=== PATIENT | female | born 2000 | race Caucasian/White ===

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

== ENCOUNTER 2018-08-12 17:28 | Emergency (ER) | payer OTHER ==
--- NOTE | 2018-08-12 17:41 | PDOC ---
Attending Attestation - HPI HPI: 08/12/18 23:48 This patient was evaluated and worked up in conjunction with Dr. Escalante as the attending. However the resident did discuss the disposition of the patient with me prior to sending the patient home is Dr. Escalante gone off duty. <Lulu Kelly I - Last Filed: 08/12/18 23:48> - Resident Resident Name: Fortino Salazar - ED Attending Attestation I have performed the following: I have examined & evaluated the patient, The case was reviewed & discussed with the resident, I agree w/resident's findings & plan, Exceptions are as noted - HPI HPI: Patient exam showed epigastric and right upper quadrant tenderness, but this finding was not reproducible on subsequent examinations. There was no lower quadrant tenderness. There was no guarding or rebound. The abdomen was not distended and bowel sounds were normal. - Physicial Exam PE: 08/15/18 08:23 Physical was noted above - Medical Decision Making 08/15/18 08:19 Assessment: Laboratory findings showed no significant abnormalities. Ultrasound performed, specifically to evaluate the kidneys and gallbladder/liver, did not show any unusual findings. The patient's history reveals chronic intermittent abdominal pain of this nature, most suggestive of chronic intermittent dyspepsia , stress-related hyperacidity, or IBS. Plan: Symptomatic treatment, return to ER if worse, or if other significant symptoms develop, and follow up with electronics technician for further evaluation and treatment. Patient was signed out to Dr. Amaro at 7 PM pending further evaluation and disposition by Dr. Amaro and the resident in charge of the case. <Brandon Gibbons - Last Filed: 08/15/18 08:23>
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
[2018-08-12 17:56] LABS: URINE APPEARANCE Clear; URINE BILIRUBIN 1+ (NEGATIVE); URINE COLOR Amber; URINE GLUCOSE (UA) Negative (NEGATIVE); URINE KETONE 2+ (NEGATIVE); URINE LEUK ESTERASE Negative (NEGATIVE); URINE NITRITE Negative (NEGATIVE); URINE PROTEIN Negative (NEGATIVE); URINE UROBILINOGEN 0.2 (0.2-1.0)
[2018-08-12 18:02] LABS: HCG,QUALITATIVE URINE Negative
[2018-08-12] MEDS ORDERED: KETOROLAC TROMETHAMINE 30 MG/1 ML VIAL IVPUSH ONE (18:08)
[2018-08-12] MEDS ORDERED: SODIUM CHLORIDE 0.9% 500 ML INFUS.BAG IV ONE (18:08)
[2018-08-12 18:11] LABS: EPI CELLS 3+ /HPF; URINE WBC 0-2 (0-5)
[2018-08-12] MEDS ORDERED: KETOROLAC TROMETHAMINE 30 MG/1 ML VIAL ONE (18:11)
[2018-08-12 18:37] LABS: BASO % 0.7 % (0-2.0); MEAN PLT VOLUME 9.8 fl (7.5-11.1); WHITE BLOOD COUNT 8.6 K/mm3 (4.0-10.8)
[2018-08-12 18:40] LABS: EOS % 0.4 % (0-4.5); HEMATOCRIT 43.3 % (32.4-45.2); HEMOGLOBIN 14.3 GM/dl (10.7-15.3); LYMPH % 25.8 % (8-40); MCH 29.9 pg (25.7-33.7); MEAN CELL VOLUME 90.5 fl (80-96); MONO % 5.4 % (3.8-10.2); NEUT % 67.7 % (42.8-82.8); PLATELET COUNT 283 K/MM3 (134-434); RBC 4.78 M/mm3 (3.60-5.2); RDW 12.7 % (11.6-15.6)
[2018-08-12 18:42] VITALS: PULSE 78; TEMP 98.7; BMI 23.0
[2018-08-12 18:45] LABS: ALBUMIN 4.7 g/dl (3.5-5.0); ALK PHOS 67 U/L (32-92); ANION GAP 7 MMOL/L (8-16); BILIRUBIN,TOTAL 0.8 mg/dl (0.2-1.0); BLOOD UREA NITROGEN 20 mg/dl (7-18); CALCIUM 9.1 mg/dl (8.4-10.2); CHLORIDE 101 mmol/L (98-107); CO2 26 mmol/L (22-28); CREATININE 0.8 mg/dl (0.6-1.3); GLUCOSE,RANDOM 100 mg/dl (74-106); POTASSIUM 3.9 mmol/L (3.5-5.1); SGOT/AST 23 U/L (10-42); SGPT/ALT 16 U/L (10-40); SODIUM 134 mmol/L (136-145); TOT PROT 7.7 g/dl (6.4-8.3)
[2018-08-12 20:18] VITALS: BP 117/69
== END 2018-08-12 20:17 | disposition home or self-care (01) ==
LOC: FER 17:28
PROC: 3E0333Z Introduction of Anti-inflammatory into Peripheral Vein, Percutaneous Approach (ICD-10-PCS; principal; 2018-08-12)
PROC: 3E0337Z Introduction of Electrolytic and Water Balance Substance into Peripheral Vein, Percutaneous Approach (ICD-10-PCS; 2018-08-12)
DX: B36.0 Pityriasis versicolor (principal); S36.113A Laceration of liver, unspecified degree, initial encounter
CPT/HCPCS: 36415; 76705-TC; 80053; 81003; 81015; 84703; 85025; 87086; 99282-25

== ENCOUNTER 2018-10-08 11:59 | Emergency (ER) | payer OTHER ==
[2018-10-08 12:06] VITALS: BP 112/67; PULSE 69; TEMP 97.8; BMI 20.5
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
[2018-10-08] MEDS ORDERED: IBUPROFEN 600 MG TABLET (FP) PO ONE ×2 (12:27→12:37)
--- NOTE | 2018-10-09 11:38 | EKG ---
Test Reason : Blood Pressure : / mmHG Vent. Rate : 050 BPM Atrial Rate : 050 BPM P-R Int : 134 ms QRS Dur : 090 ms QT Int : 438 ms P-R-T Axes : 036 084 004 degrees QTc Int : 399 ms SINUS BRADYCARDIA CANNOT RULE OUT ANTERIOR INFARCT , AGE UNDETERMINED ABNORMAL ECG WHEN COMPARED WITH ECG OF 27-NOV-2017 16:48, NO SIGNIFICANT CHANGE WAS FOUND Confirmed by ELSIE PEREZ, CHARLEY ([id number]) on 10/09/2018 11:37:44 AM Referred By: HECOTR BRAVO Confirmed By:CHARLEY ZIMMERMAN MD
== END 2018-10-08 13:30 | disposition home or self-care (01) ==
LOC: FER 11:59
DX: F41.0 Panic disorder [episodic paroxysmal anxiety] (principal)
CPT/HCPCS: 84703; 93005; 99282-25

== ENCOUNTER 2018-11-08 04:50 | Emergency (ER) | payer OTHER ==
[2018-11-08 04:53] VITALS: BP 113/57; PULSE 71; TEMP 98; BMI 23.0
[2018-11-08] MEDS ORDERED: ONDANSETRON 4 MG/2 ML VIAL IVPUSH ONE (04:56)
[2018-11-08] MEDS ORDERED: SODIUM CHLORIDE 1,000 ML IV STA ×2 (04:56→06:40)
--- NOTE | 2018-11-08 05:01 | PDOC ---
History of Present Illness - General Chief Complaint: Nausea/Vomiting Stated Complaint: NAUSEA/VOMITING Time Seen by Provider: 11/08/18 04:51 - History of Present Illness Initial Comments: 11/08/18 04:59 This otherwise healthy 17-year-old woman presents with a one-day history of nausea/vomiting/abdominal pain. Patient states that she had onset of pain in the upper portion of her abdomen with nausea during the day yesterday. At approximately 1 AM, she had onset of vomiting . This continued for several hours with emesis being bilious (no blood or coffee ground material). The pt was unable to eat or drink anything for most of the day. No history of measured fever; patient had chills briefly when she was vomiting earlier. No history of diarrhea. No recent travel. No unusual food ingestions except ate blackberies a few days ago , some of which were moldy. LMP approximately one month ago. She is currently due for her menstrual period. no change in flow or duration Past History - Past Medical History Allergies/Adverse Reactions: Allergies Allergy/AdvReac Type Severity Reaction Status Date / Time No Known Allergies Allergy Verified 10/08/18 12:00 Home Medications: Ambulatory Orders Ondansetron [Zofran Odt -] 4 mg SL TID PRN #12 od.tablet 11/08/18 COPD: No Psychiatric Problems: Yes (ANXIETY) Thyroid Disease: No - Immunization History Immunization Up to Date: Yes - Suicide/Smoking/Psychosocial Hx Smoking Status: No Smoking History: Never smoked Have you smoked in the past 12 months: No Number of Cigarettes Smoked Daily: 0 Hx Alcohol Use: No Drug/Substance Use Hx: Yes (MARIJAUNA) Substance Use Type: None Review of Systems - Review of Systems Able to Perform ROS?: Yes Comments:: 12 point review of systems is negative except for what is noted in the history of present illness *Physical Exam - Vital Signs Last Vital Signs Temp Pulse Resp BP Pulse Ox 98 F 71 16 113/57 L 99 11/08/18 04:51 11/08/18 04:51 11/08/18 04:51 11/08/18 04:51 11/08/18 04:51 - Physical Exam Comments: GENERAL: Young adult female, appearing in mild distress HEAD: Normal with no signs of trauma. EYES: PERRLA, EOMI, sclera anicteric, conjunctiva clear. ENT: Ears normal, nares patent, oropharynx clear without exudates. Dry mucous membranes. NECK: Normal range of motion, supple without lymphadenopathy, JVD, or masses. LUNGS: Breath sounds equal, clear to auscultation bilaterally. No wheezes, and no crackles. HEART:Regular rate and rhythm, normal S1 and S2 without murmur, rub or gallop. ABDOMEN:.normal bowel sounds bilateral upper abdominal tenderness; no masses or organomegaly EXTREMITIES: Normal range of motion, no edema. No clubbing or cyanosis. No erythema, or tenderness. NEUROLOGICAL: Cranial nerves II through XII grossly intact. Normal speech. No focal neurological deficits. MUSCULOSKELETAL: Back non-tender to palpation, no CVA tenderness SKIN: Warm, Dry, normal turgor, no rashes or lesions noted. Moderate Sedation - Procedure Monitoring Vital Signs: Procedure Monitoring Vital Signs Temperature 98 F 11/08/18 04:51 Pulse Rate 71 11/08/18 04:51 Respiratory Rate 16 11/08/18 04:51 Blood Pressure 113/57 L 11/08/18 04:51 O2 Sat by Pulse Oximetry (%) 99 11/08/18 04:51 ED Treatment Course - LABORATORY CBC & Chemistry Diagram: 11/08/18 05:10 11/08/18 05:10 Medical Decision Making - Medical Decision Making 11/08/18 06:43 Patient feels significantly better with resolution of most of her nausea and a lot of her pain after liter of normal saline and 4 mg of Zofran IV. Repeat abdominal exam reveals no evidence of tenderness or masses. Mucous membranes are still dry and patient has not yet urinated after giving a small sample for urinalysis. Patient will have a second liter normal saline IV *DC/Admit/Observation/Transfer Diagnosis at time of Disposition: Gastroenteritis - Discharge Dispostion Condition at time of disposition: Stable - Referrals Referrals: Jn Walters MD [Primary Care Provider] - - Patient Instructions Printed Discharge Instructions: DI for Viral Gastroenteritis -- Adult Additional Instructions: Rest; clear liquids Advance diet cautiously Zofran ODT 4 mg up to 3 times a day as needed for nausea No work until November Return to ER if you have recurrent, persistent vomiting or develop fever/severe pain Follow-up with your general doctor within the next 5 days - Post Discharge Activity Forms/Work/School Notes: Back to Work
[2018-11-08 05:48] LABS: BASO % 0.1 % (0-2.0); EOS % 1.1 % (0-4.5); HEMATOCRIT 45.9 % (32.4-45.2); HEMOGLOBIN 14.7 GM/dL (10.7-15.3); LYMPH % 6.1 % (8-40); MCH 28.8 pg (25.7-33.7); MEAN CELL VOLUME 89.8 fl (80-96); MEAN PLT VOLUME 9.2 fl (7.5-11.1); MONO % 6.1 % (3.8-10.2); NEUT % 86.6 % (42.8-82.8); PLATELET COUNT 288 K/MM3 (134-434); RDW 13.8 % (11.6-15.6); WHITE BLOOD COUNT 16.7 K/mm3 (4.0-10.0)
[2018-11-08 05:58] LABS: HCG,QUALITATIVE URINE Negative
[2018-11-08 06:24] LABS: URINE APPEARANCE CLOUDY; URINE BILIRUBIN NEGATIVE (<2.0 mg/dL); URINE COLOR YELLOW; URINE GLUCOSE (UA) NEGATIVE (NEGATIVE); URINE KETONE NEGATIVE (NEGATIVE); URINE LEUK ESTERASE 2+ (NEGATIVE); URINE NITRITE NEGATIVE (NEGATIVE); URINE PROTEIN NEGATIVE (NEGATIVE); URINE UROBILINOGEN NEGATIVE mg/dL (0.2-1.0)
[2018-11-08 06:28] LABS: ALBUMIN 4.2 g/dl (3.4-5.0); ALK PHOS 78 U/L (45-117); ANION GAP 7 MMOL/L (8-16); BILIRUBIN,TOTAL 0.3 mg/dL (0.2-1); BLOOD UREA NITROGEN 14 mg/dL (7-18); CALCIUM 8.6 mg/dL (8.5-10.1); CHLORIDE 103 mmol/L (98-107); CO2 27 mmol/L (21-32); CREATININE 0.7 mg/dL (0.55-1.3); GLUCOSE,RANDOM 99 mg/dL (74-106); SGOT/AST 11 U/L (15-37); SGPT/ALT 25 U/L (13-61); SODIUM 137 mmol/L (136-145); TOT PROT 7.8 g/dl (6.4-8.2)
[2018-11-08 06:32] LABS: EPI CELLS MANY /HPF (FEW); URINE BACTERIA RARE /hpf (NONE SEEN); URINE HYALINE CAST 1 /lpf; URINE MUCUS FEW
== END 2018-11-08 07:15 | disposition home or self-care (01) ==
LOC: FER 04:50
PROC: 3E033GC Introduction of Other Therapeutic Substance into Peripheral Vein, Percutaneous Approach (ICD-10-PCS; principal; 2018-11-08)
PROC: 3E0337Z Introduction of Electrolytic and Water Balance Substance into Peripheral Vein, Percutaneous Approach (ICD-10-PCS; 2018-11-08)
DX: K52.9 Noninfective gastroenteritis and colitis, unspecified (principal)
CPT/HCPCS: 36415; 80053; 81003; 81015; 84703; 85025; 99283-25; J7030

== ENCOUNTER 2020-09-26 14:10 | Emergency (ER) | payer OTHER | END 2020-09-26 15:32 | disposition home or self-care (01) | LOC: JVIRT 14:10 | DX: Z11.59 Encounter for screening for other viral diseases (principal) | CPT/HCPCS: C9803; G2012-GT; U0003 ==

== ENCOUNTER 2021-04-07 11:44 | Emergency (ER) | payer OTHER ==
[2021-04-07 11:53] VITALS: BP 126/75; PULSE 83; TEMP 98.6; BMI 19.7
[2021-04-07 12:48] LABS: BASO % 1.1 % (0-2.0); EOS % 0.4 % (0-4.5); HEMATOCRIT 41.3 % (32.4-45.2); HEMOGLOBIN 13.9 GM/dl (10.7-15.3); LYMPH % 18.9 % (8-40); MCH 30.5 pg (25.7-33.7); MCHC 33.7 g/dl (32.0-36.0); MEAN CELL VOLUME 90.5 fl (80-96); MEAN PLT VOLUME 9.4 fl (7.5-11.1); MONO % 4.1 % (3.8-10.2); NEUT % 75.5 % (42.8-82.8); PLATELET COUNT 359 K/MM3 (134-434); RBC 4.57 M/mm3 (3.60-5.2); RDW 12.1 % (11.6-15.6); WHITE BLOOD COUNT 13.6 K/mm3 (4.0-10.8)
[2021-04-07 12:56] LABS: ALBUMIN 3.9 g/dl (3.4-5.0); BILIRUBIN,TOTAL 0.5 mg/dl (0.2-1); CALCIUM 8.9 mg/dl (8.5-10); CREATININE 0.8 mg/dl (0.55-1.3); TOT PROT 7.6 g/dl (6.4-8.2)
[2021-04-07] MEDS ORDERED: KETOROLAC TROMETHAMINE 30 MG/1 ML VIAL ONE (15:31)
[2021-04-07] MEDS ORDERED: KETOROLAC TROMETHAMINE 30 MG/1 ML VIAL IVPUSH ONE (15:44)
== END 2021-04-07 15:55 | disposition home or self-care (01) ==
LOC: FER 11:44
PROC: 3E0333Z Introduction of Anti-inflammatory into Peripheral Vein, Percutaneous Approach (ICD-10-PCS; principal; 2021-04-07)
DX: N83.00 Follicular cyst of ovary, unspecified side (principal)
CPT/HCPCS: 36415; 76830-TC; 80053; 81003; 81025; 84702; 85025; 87491; 87591; 99284-25

== ENCOUNTER 2021-05-11 18:48 | Emergency (ER) | payer OTHER ==
[2021-05-11 19:24] VITALS: BP 122/77; PULSE 71; TEMP 99
[2021-05-11 19:53] LABS: BASO % 1.3 % (0-2.0); EOS % 0.5 % (0-4.5); HEMATOCRIT 40.1 % (32.4-45.2); HEMOGLOBIN 13.4 GM/dl (10.7-15.3); LYMPH % 24.4 % (8-40); MCHC 33.3 g/dl (32.0-36.0); MEAN PLT VOLUME 9.8 fl (7.5-11.1); MONO % 5.8 % (3.8-10.2); PLATELET COUNT 238 10^3/uL (134-434); RBC 4.46 M/mm3 (3.60-5.2); RDW 13.2 % (11.6-15.6); WHITE BLOOD COUNT 10.1 K/mm3 (4.0-10.8)
== END 2021-05-11 20:21 | disposition home or self-care (01) ==
LOC: FER 18:48
DX: N93.9 Abnormal uterine and vaginal bleeding, unspecified (principal)
CPT/HCPCS: 36415; 84703; 85025; 99283-25

== ENCOUNTER 2022-07-01 17:45 | Emergency (ER) | payer SELFPAY ==
[2022-07-01 17:53] VITALS: BP 101/72; PULSE 82; RESP 18; TEMP 97.8; BMI 20.5
[2022-07-01 18:22] LABS: HCG,QUALITATIVE URINE Negative
[2022-07-01] MEDS ORDERED: KETOROLAC TROMETHAMINE 30 MG/1 ML VIAL IVPUSH ONE (20:29)
[2022-07-01] MEDS ORDERED: KETOROLAC TROMETHAMINE 15 MG/ML VIAL ONE (20:30)
[2022-07-01] MEDS ORDERED: KETOROLAC TROMETHAMINE 60 MG/2 ML VIAL IM ONE (20:33)
[2022-07-01] MEDS ORDERED: KETOROLAC TROMETHAMINE 30 MG/1 ML VIAL ONE (20:34)
== END 2022-07-01 21:58 | disposition home or self-care (01) ==
LOC: FER 17:45
PROC: 3E0233Z Introduction of Anti-inflammatory into Muscle, Percutaneous Approach (ICD-10-PCS; principal; 2022-07-01)
DX: R10.31 Right lower quadrant pain (principal)
CPT/HCPCS: 76830-TC; 81003; 84703; 87086; 99284-25

== ENCOUNTER 2023-02-09 12:41 | Emergency (ER) | payer OTHER ==
[2023-02-09 12:49] VITALS: BP 113/55; PULSE 88; RESP 20; TEMP 97.2; BMI 18.5
[2023-02-09] MEDS ORDERED: IBUPROFEN 400 MG TABLET (FP) PO ONE ×2 (13:09→13:15)
[2023-02-09] MEDS ORDERED: ACETAMINOPHEN 325 MG TABLET (FP) PO ONE (13:09)
[2023-02-09] MEDS ORDERED: CYCLOBENZAPRINE HCL 10 MG TABLET (FP) PO ONE (13:09)
[2023-02-09] MEDS ORDERED: CYCLOBENZAPRINE HCL 10 MG TABLET (FP) ONE (13:15)
[2023-02-09] MEDS ORDERED: ACETAMINOPHEN 325 MG TABLET (FP) ONE (13:15)
[2023-02-09 13:28] LABS: BASO % 0.4 % (0-2.0); EOS % 2.4 % (0-4.5); HEMATOCRIT 38.2 % (32.4-45.2); HEMOGLOBIN 13.1 GM/dL (10.7-15.3); LYMPH % 23.6 % (8-40); MCH 30.9 pg (25.7-33.7); MCHC 34.2 g/dl (32.0-36.0); MEAN CELL VOLUME 90.3 fl (80-96); MEAN PLT VOLUME 9.1 fl (7.5-11.1); MONO % 6.4 % (3.8-10.2); NEUT % 67.2 % (42.8-82.8); PLATELET COUNT 243 10^3/uL (134-434); RBC 4.23 M/mm3 (3.60-5.2); RDW 13.8 % (11.6-15.6); WHITE BLOOD COUNT 7.5 K/mm3 (4.0-10.0)
[2023-02-09 13:56] LABS: BLOOD UREA NITROGEN 11.6 mg/dL (7-18); CALCIUM 8.9 mg/dL (8.5-10.1)
[2023-02-09 14:00] LABS: CREATININE 0.8 mg/dL (0.55-1.3)
== END 2023-02-09 15:14 | disposition home or self-care (01) ==
LOC: JER 12:41
DX: R07.89 Other chest pain (principal); R53.1 Weakness; M25.512 Pain in left shoulder
CPT/HCPCS: 36415; 71046-TC-FY; 80048; 84443; 84484; 85025; 93005; 93010; 99285-25

== ENCOUNTER 2023-04-12 12:04 | Emergency (ER) | payer OTHER ==
[2023-04-12 12:09] VITALS: BP 122/77; PULSE 95; RESP 18; TEMP 98; BMI 18.8
[2023-04-12 14:05] LABS: URINE APPEARANCE CLEAR; URINE BILIRUBIN NEGATIVE (NEGATIVE); URINE COLOR YELLOW; URINE GLUCOSE (UA) NEGATIVE (NEGATIVE); URINE KETONE TRACE (NEGATIVE); URINE LEUK ESTERASE NEGATIVE (NEGATIVE); URINE NITRITE NEGATIVE (NEGATIVE); URINE PROTEIN NEGATIVE (NEGATIVE); URINE UROBILINOGEN 0.2 mg/dL (0.2-1.0)
[2023-04-12 14:09] LABS: HEMOGLOBIN 14.1 G/dL (10.7-15.3); MCH 30.2 pg (25.7-33.7); MEAN CELL VOLUME 92.3 fl (80-96); RBC 4.66 10^6/uL (3.60-5.2); WHITE BLOOD COUNT 6.6 10^3/uL (4.0-10.8)
[2023-04-12 14:10] LABS: MCHC 32.7 g/dl (32.0-36.0); PLATELET COUNT 262 10^3/uL (134-434); POTASSIUM 4.3 mmol/L (3.5-5.1); RDW 13.6 % (11.6-15.6)
[2023-04-12 14:12] LABS: CALCIUM 9.3 mg/dL (8.5-10.1)
[2023-04-12 14:14] LABS: ALBUMIN 4.4 g/dl (3.4-5.0); BLOOD UREA NITROGEN 16.6 mg/dL (7-18)
[2023-04-12 14:17] LABS: CREATININE 0.8 mg/dL (0.55-1.3)
[2023-04-12 14:18] LABS: BILIRUBIN,TOTAL 0.4 mg/dL (0.2-1); TOT PROT 7.7 g/dl (6.4-8.2)
[2023-04-12] MEDS ORDERED: KETOROLAC TROMETHAMINE 15 MG/ML VIAL IVPUSH ONE (14:20)
[2023-04-12] MEDS ORDERED: KETOROLAC TROMETHAMINE 15 MG/ML VIAL ONE (14:30)
== END 2023-04-12 17:04 | disposition home or self-care (01) ==
LOC: JER 12:04
PROC: 3E0333Z Introduction of Anti-inflammatory into Peripheral Vein, Percutaneous Approach (ICD-10-PCS; principal; 2023-04-12)
DX: K59.01 Slow transit constipation (principal); R10.31 Right lower quadrant pain
CPT/HCPCS: 36415; 74177-TC; 80053; 81003; 84703; 85027; 86140; 99285-25; Q9967